=== PATIENT | male | born 1945 | race Hispanic/Latino ===

== ENCOUNTER 2019-09-12 23:40 | Inpatient (IN) | payer MEDICARE, OTHER ==
[~2019-09-12] VITALS: Ht 160 cm; Wt 83.9 kg
[~2019-09-12 23:40] MED LIST: ADVIL; LOSARTAN POTAS100 MG PO; [UNRECOGNIZED DRUG - OTHER] PO; unknown bp med PO
[2019-09-13 01:34] LABS: BASOPHILS % 0.4 % (0.0-1.0); EOSINOPHILS # (AUTO) 0.1 (0.0-0.4); EOSINOPHILS % 0.6 % (0.0-6.0); HEMATOCRIT 52.9 % (38.2-49.6); HEMOGLOBIN 17.9 g/dL (14.0-18.0); LYMPHOCYTES # (AUTO) 1.2 (1.0-3.2); LYMPHOCYTES % 12.2 % (18.0-39.1); MEAN CORPUSCULAR HEMOGLOBIN 30.3 pg (28-32); MEAN CORPUSCULAR HGB CONC 33.8 g/dL (31-35); MEAN CORPUSCULAR VOLUME 89.7 fL (81-99); MONOCYTES # (AUTO) 0.9 (0.2-0.8); MONOCYTES % 8.4 % (4.4-11.3); NEUTROPHILS % 78.2 % (38.7-80.0); PLATELET COUNT 236 x10e3/uL (140-360); RED CELL DISTRIBUTION WIDTH 14.4 % (11.7-14.4)
[2019-09-13 01:56] LABS: ALBUMIN 4.8 g/dL (3.5-5.0); ALBUMIN/GLOBULIN RATIO 0.9 (0.8-2.0); ANION GAP 26.3 mmol/L (8-16); CALCIUM 11.9 mg/dL (8.4-10.2); CREATININE, SERUM 3.57 mg/dL (0.72-1.25); POTASSIUM 3.3 mmol/L (3.5-5.1)
--- NOTE | 2019-09-13 05:45 | Diagnostic Imaging Report ---
EXAM: CT Abdomen and Pelvis WITHOUT contrast INDICATION: Abdominal pain COMPARISON: None. TECHNIQUE: Abdomen and pelvis were scanned utilizing a multidetector helical scanner from the lung base to the pubic symphysis without administration of IV contrast. Absence of intravenous contrast decreases sensitivity for detection of focal lesions and vascular pathology. Coronal and sagittal reformations were obtained. Routine protocol was performed. IV CONTRAST: None ORAL CONTRAST: None COMPLICATIONS: None RADIATION DOSE: Total DLP: 642 mGy*cm Estimated effective dose: (DLP x 0.015 x size factor) mSv CTDIvol has been reviewed. It is below the limits set by the Radiation Protocol Committee (RPC). Dose modulation, iterative reconstruction, and/or weight based adjustment of the mA/kV was utilized to reduce the radiation dose to as low as reasonably achievable. FINDINGS: LINES and TUBES: None. LOWER THORAX: Left lower lobe calcified granuloma. No pleural effusion. HEPATOBILIARY: No focal hepatic lesions. No biliary ductal dilation. GALLBLADDER: No radio-opaque stones or sludge. No wall thickening. SPLEEN: No splenomegaly. PANCREAS: No focal masses or ductal dilatation. ADRENALS: No adrenal nodules KIDNEYS/URETERS: No hydronephrosis. 1.3 cm low-density right renal cortical lesion, likely a cyst. No stones. GI TRACT: Multiple dilated fluid and air-filled loops of small bowel that measure up to 3.7 cm in maximum caliber. Transition point from dilated bowel to decompressed bowel within a midline ventral hernia. The ileum and colon are decompressed. The stomach is distended. No obvious bowel mass. PELVIC ORGANS/BLADDER: The urinary bladder is completely decompressed. The prostate gland is grossly unremarkable. LYMPH NODES: No lymphadenopathy. VESSELS: Scattered atherosclerotic calcifications. PERITONEUM / RETROPERITONEUM: No free air or fluid. BONES: No acute osseous abnormality. SOFT TISSUES: 3.3 x 7.1 cm midline supraumbilical ventral hernia that contains a loop of obstructed small bowel. IMPRESSION: High-grade small bowel obstruction. The point of bowel obstruction is within a 3.3 x 7.1 cm supraumbilical ventral hernia. Surgical consultation is suggested. Signed by: Fabrice Fairbanks MD on 09/13/2019 5:42 AM
--- NOTE | 2019-09-13 06:20 | Emergency Department Note ---
History of Present Illnes History of Present Illness Chief Complaint: Abdominal Complaints History of Present Illness This is a 74 year old male arrives to the ED with epigastric abdominal pain associated nausea and vomiting, for several days. Chief Complaint Comment 74 Y/O MALE PT PRESENTS TO THE ER C/O UMBILICAL ABD PAIN WITH NAUSEA/VOMITTING ONSET YESTERDAY; PT WAS SE[facility] AT [facility] AND TOLD TO COME TO THE ER FOR CT SCAN ABD/LEPVIS AND FURTHER WORKUP; DENIES FEVER/CHILLS; NAD NOTED AT THIS TIME; V/S/S STABLE; 20G IV CATH PLACED IN LT AC; BLOOD OBTAINED FOR ANALYSIS. Historian: Patient Arrival Mode: Car Core Analyst Required: No Onset (how long ago): day(s) Radiation: Reports non-radiation Onset quality: gradual Duration (how long): day(s) Timing of current episode: constant Progression: worsening Exacerbating factors: eating Associated symptoms: Reports loss of appetite, Reports nausea/vomiting Past Medical/Family History Physician Review I have reviewed the patient's past medical and family history. Any updates have been documented here. Past Medical History Recent Fever: No Clinical Suspicion of Infectio: No New/Unexplained Change in Ment: No Past Medical History: Hypertension Other Surgery: BILATERAL KNEE SX Review of Systems Review of Systems Constitutional: Reports no symptoms EENTM: Reports no symptoms Cardiovascular: Reports no symptoms Respiratory: Reports no symptoms Gastrointestinal: Reports as per HPI, Reports abdominal pain, Reports nausea, R eports vomiting Genitourinary: Reports no symptoms Musculoskeletal: Reports no symptoms Integumentary: Reports no symptoms Neurological: Reports no symptoms Psychological: Reports no symptoms Endocrine: Reports no symptoms Hematological/Lymphatic: Reports no symptoms Physical Exam Related Data Allergies: Coded Allergies: No Known Allergies (Unverified , 11/05/12) Triage Vital Signs Vital Signs Date Time Temp Pulse Resp B/P (MAP) Pulse Ox O2 Delivery O2 Flow Rate FiO2 09/13/19 01:17 98.0 101 20 101/76 96 Vital signs reviewed: Yes Physical Exam CONSTITUTIONAL Constitutional: Present well-developed, Present well-nourished HENT HENT: Present normocephalic, Present atraumatic, Present oropharynx clear/moist, Present nose normal HENT L/R: Present left ext ear normal, Present right ext ear normal EYES Eyes: Reports PERRL, Reports conjunctivae normal NECK Neck: Present ROM normal PULMONARY Pulmonary: Present effort normal, Present breath sounds normal CARDIOVASCULAR Cardiovascular: Present regular rhythm, Present heart sounds normal, Present capillary refill normal, Present normal rate GASTROINTESTINAL Abdominal: Present soft, Present distension, Present tender; Absent bowel sounds normal GENITOURINARY Genitourinary: Present exam deferred SKIN Skin: Present warm, Present dry MUSCULOSKELETAL Musculoskeletal: Present ROM normal NEUROLOGICAL Neurological: Present alert, Present oriented x 3, Present no gross motor or sensory deficits PSYCHOLOGICAL Psychological: Present mood/affect normal, Present judgement normal Results Laboratory Result Diagram: 09/13/19 0123 09/13/19 0123 Laboratory Laboratory Tests Test 09/13/19 01:23 White Blood Count 10.19 x10e3/uL (4.8-10.8) Red Blood Count 5.90 x10e6/uL (4.3-5.7) Hemoglobin 17.9 g/dL (14.0-18.0) Hematocrit 52.9 % (38.2-49.6) Mean Corpuscular Volume 89.7 fL (81-99) Mean Corpuscular Hemoglobin 30.3 pg (28-32) Mean Corpuscular Hemoglobin Concent 33.8 g/dL (31-35) Red Cell Distribution Width 14.4 % (11.7-14.4) Platelet Count 236 x10e3/uL (140-360) Neutrophils (%) (Auto) 78.2 % (38.7-80.0) Lymphocytes (%) (Auto) 12.2 % (18.0-39.1) Monocytes (%) (Auto) 8.4 % (4.4-11.3) Eosinophils (%) (Auto) 0.6 % (0.0-6.0) Basophils (%) (Auto) 0.4 % (0.0-1.0) Neutrophils # (Auto) 8.0 (2.1-6.9) Lymphocytes # (Auto) 1.2 (1.0-3.2) Monocytes # (Auto) 0.9 (0.2-0.8) Eosinophils # (Auto) 0.1 (0.0-0.4) Basophils # (Auto) 0.0 (0.0-0.1) Absolute Immature Granulocyte (auto 0.02 x10e3/uL (0-0.1) Sodium Level 138 mmol/L (136-145) Potassium Level 3.3 mmol/L (3.5-5.1) Chloride Level 83 mmol/L (98-107) Carbon Dioxide Level 32 mmol/L (22-29) Anion Gap 26.3 mmol/L (8-16) Blood Urea Nitrogen 47 mg/dL (7-26) Creatinine 3.57 mg/dL (0.72-1.25) Estimat Glomerular Filtration Rate 17 ML/MIN (60-) BUN/Creatinine Ratio 13 (6-25) Glucose Level 158 mg/dL (74-118) Calcium Level 11.9 mg/dL (8.4-10.2) Total Bilirubin 1.2 mg/dL (0.2-1.2) Aspartate Amino Transf (AST/SGOT) 19 IU/L (5-34) Alanine Aminotransferase (ALT/SGPT) 18 IU/L (0-55) Alkaline Phosphatase 55 IU/L (40-150) Total Protein 10.3 g/dL (6.5-8.1) Albumin 4.8 g/dL (3.5-5.0) Globulin 5.5 g/dL (2.3-3.5) Albumin/Globulin Ratio 0.9 (0.8-2.0) Lab results reviewed: Yes Imaging Imaging results reviewed: Yes Imaging Comments IMPRESSION: High-grade small bowel obstruction. The point of bowel obstruction is within a 3.3 x 7.1 cm supraumbilical ventral hernia. Surgical consultation is suggested. Assessment & Plan Medical Decision Making MDM 74 yo M arrived to the ED with epigastric abdominal pain, patient noted to have marked renal dysfunction, no infectious process noted at time of admission. Patient CT findings concerning for a small bowel obstruction, Dr. Rosas consult general surgery accepted consultation. Assessment & Plan Final Impression: (1) Small bowel obstruction (2) Acute renal failure Depart Disposition: ADMITTED Last Vital Signs Date Time Temp Pulse Resp B/P (MAP) Pulse Ox O2 Delivery O2 Flow Rate FiO2 09/13/19 01:17 98.0 101 20 101/76 96 Home Meds Reported Medications [unknown bp med] No Conflict Check, PO DAILY 12/08/12 [Advil] No Conflict Check, PRN 11/19/12 COLT ABBOTT DO Sep 13, 2019 06:20
--- NOTE | 2019-09-13 07:00 | NUR ---
Patient received via stretcher from ER. AAO x 3. Patient had no complaints of pain. Respirations even and non-labored. Telemetry leads placed on patient. Patient instructed to call for assistance when needed. Call light within reach.
[2019-09-13 07:59] VITALS: BP 107/68
--- NOTE | 2019-09-13 09:18 | Consultation ---
DATE OF CONSULTATION: 09/13/2019 CHIEF COMPLAINT: Abdominal pain and vomiting. HISTORY OF PRESENT ILLNESS: The patient is a 74-year-old male with 2-day history of epigastric abdominal pain with repeat vomiting even with water. No hematemesis. No fever, chills, or diarrhea. PAST MEDICAL HISTORY: Positive for hypertension and coronary artery disease. PAST SURGICAL HISTORY: Positive for colon cancer surgery and bilateral knee surgery. ALLERGIES: HE HAS NO DRUG ALLERGIES. SOCIAL HISTORY: Smoking and social drinking. REVIEW OF SYSTEMS: No current chest pain or shortness of breath, cough, or fevers. PHYSICAL EXAMINATION: VITAL SIGNS: Stable. He is afebrile. GENERAL: He is awake, alert, in mild discomfort. HEENT: Sclerae nonicteric. NECK: Supple. LUNGS: Clear. HEART: Regular rate and rhythm. ABDOMEN: Soft. There is a mass palpable in the supraumbilical area with mild tenderness. No rebound. EXTREMITIES: No cyanosis or edema LABORATORY DATA: White cell count 10 and hemoglobin of 17. Creatinine of 3.5. CT of the abdomen show high-grade obstruction in the transition point at the ventral hernia in the supraumbilical region. ASSESSMENT: Incarcerated ventral hernia. PLAN: Repair of incarcerated ventral hernia and anesthesia. Attendant risks discussed. Wayne Rosas MD DNL/MODL /[id number]
[2019-09-13 09:33] VITALS: BP 107/68
[2019-09-13 10:55] VITALS: BP 107/68
[2019-09-13 11:12] VITALS: BP 120/66
[2019-09-13] MEDS: KCL 20MEQ/.9 SOD CHL 1,000 ML IV SCH ×2 (12:27→18:17)
[2019-09-13] MEDS ORDERED: PHENYLEPHRINE HCL 1% 10 MG/ML VIAL ONE (14:01)
[2019-09-13] MEDS ORDERED: SEVOFLURANE INHAL SOLN 250 ML PEN BTL ONE (14:01)
[2019-09-13] MEDS ORDERED: GLYCOPYRROLATE INJ 0.2 MG/ML VIAL ONE (14:01)
[2019-09-13] MEDS ORDERED: ONDANSETRON HCL INJ 2MG/ML 2ML 2 MG/ML VIAL ONE (14:01)
[2019-09-13] MEDS ORDERED: ETOMIDATE 2 MG/ML 10 ML INJ IV ONE (14:01)
[2019-09-13] MEDS ORDERED: ROCURONIUM BROMIDE 10 MG/ML 5ML VIAL IV ONE (14:01)
[2019-09-13] MEDS ORDERED: CEFAZOLIN SOD 1 GM VIAL ONE (14:01)
[2019-09-13] MEDS ORDERED: NEOSTIGMINE 1 MG/ML 10ML VIAL ONE (14:01)
[2019-09-13] MEDS ORDERED: SUCCINYLCHOLINE CHLORIDE 20 MG/ML 10ML VIAL ONE (14:01)
[2019-09-13] MEDS ORDERED: LIDOCAINE HCL 2% LOCAL INJ 5 ML SDV VIAL INJ ONE (14:01)
[2019-09-13] MEDS ORDERED: HEPARIN SOD/SOD CHLORIDE 1,000 ML ONE (14:09)
[2019-09-13] MEDS ORDERED: ACETAMINOPHEN 1000 MG/100 ML 100 ML IV ONE (14:41)
[2019-09-13] MEDS ORDERED: FENTANYL CITRATE/PF 100MCG/2 ML INJ ONE (14:56)
[2019-09-13] MEDS ORDERED: MORPHINE SULFATE 2 MG/ML SYR 1ML IV PRN (15:00)
[2019-09-13] MEDS: SODIUM CHLORIDE 0.9% 250ML IRRIG IR SCH ×2 (15:15→19:15)
--- NOTE | 2019-09-13 16:18 | NUR ---
pt recd to unit abd dressing clean and intact, pt has nasal gastic tube to suction, pt has family member at bedside. pt alert resp even and unlabored at this time. call light in reach.
[2019-09-13] MEDS ORDERED: LACTATED RINGER'S 500 ML IV ONE ×2 (18:15→18:45)
[2019-09-13] MEDS: CEFAZOLIN SOD 1 GM/NS 50ML 50 ML IV SCH (18:22)
--- NOTE | 2019-09-13 19:30 | NUR ---
Patient received asleep in bed. Aroused by tactile stimuli. No signs of pain or respiratory distress. NG tube connected to low continuous wall suction (greenish drainage). HOB elevated. Echevarria catheter draining pale yellow urine. IVF infusing at 125 cc/hr. Safety measures in place. Call light within reach.
--- NOTE | 2019-09-13 19:49 | NUR ---
report given to oncoming nurse, walking rounds complete.
[2019-09-13 20:00] VITALS: BP 99/63
[2019-09-13 21:00] VITALS: BP 99/63
--- NOTE | 2019-09-13 21:56 | Operative Report ---
DATE OF PROCEDURE: 09/13/2019 SURGEON: Wayne Rosas MD PREOPERATIVE DIAGNOSIS: Incarcerated incisional hernia. POSTOPERATIVE DIAGNOSIS: Strangulated incisional hernia. OPERATIVE PROCEDURE: Repair of strangulated incisional hernia with repair of ischemic bowel. ANESTHESIA: General. INDICATION: A 74-year-old male with 2-day history of abdominal pain and vomiting repeatedly. CT scan showed incarcerated incisional hernia with loops of intestine. The patient consented for repair. Attendant risks discussed. PROCEDURE FINDINGS: Partially ischemic bowel wall in the strangulated incisional hernia. DESCRIPTION OF THE PROCEDURE: The patient was brought to OR intubated. Abdomen prepped with alcohol and draped in sterile fashion. A supraumbilical transverse incision was made extending through skin and subcutaneous tissue. The hernia sac was identified and was dissected off surrounding subcutaneous tissue down to the fascial edge. Hernia sac was opened and excess hernia sac was trimmed at the fascial edge using cautery. We had fascia opening proximally 4 cm in diameter. The loops of small bowel which has been incarcerated was examined and there was partially ischemic bowel wall, which was possibly transmural, so muscular stitches of 3-0 Vicryl was placed transversely to buttress this area of partial bowel wall ischemia. Two of these areas were repaired in this fashion with interrupted 3-0 Vicryl Lembert stitches. After this, the bowel was re-examined, was noted to be completely pink and without area of ischemia visible. We then replaced the bowel intra-abdominally and closed the fascial defect in a transverse fashion with 0 Prolene fascial suture interrupted. Operative field was then irrigated. The subcutaneous tissue was then approximated with 3-0 Vicryl and skin was closed with quincy. The patient was extubated and transported to recovery room. ESTIMATED BLOOD LOSS: Approximately 10 mL. Wayne Rosas MD DNL/MODL /[id number]
[2019-09-13] MEDS ORDERED: HYDRALAZINE HCL 20 MG/ML VIAL IV PRN (22:00)
[2019-09-14] VITALS (8 sets, daily range): BP systolic 101–121; BP diastolic 67–74
--- NOTE | 2019-09-14 | NUR ---
New order received from Dr. Rosas of Lactated Ringer 500 cc bolus.
[2019-09-14] MEDS: CEFAZOLIN SOD 1 GM/NS 50ML 50 ML IV SCH ×4 (00:43→23:37)
[2019-09-14] MEDS ORDERED: LACTATED RINGER'S 500 ML IV ONE ×2 (00:46)
[2019-09-14] MEDS ORDERED: LACTATED RINGER'S 1,000 ML INJ ONE (01:15)
[2019-09-14] MEDS: SODIUM CHLORIDE 0.9% 250ML IRRIG IR SCH ×7 (01:49→23:28)
[2019-09-14] MEDS: KCL 20MEQ/.9 SOD CHL 1,000 ML IV SCH ×2 (05:38→09:30)
[2019-09-14 05:58] LABS: BASOPHILS % 0.2 % (0.0-1.0); EOSINOPHILS % 0.4 % (0.0-6.0); HEMATOCRIT 42.4 % (38.2-49.6); HEMOGLOBIN 14.8 g/dL (14.0-18.0); LYMPHOCYTES # (AUTO) 1.2 (1.0-3.2); MEAN CORPUSCULAR HEMOGLOBIN 32.6 pg (28-32); MEAN CORPUSCULAR HGB CONC 34.9 g/dL (31-35); MEAN CORPUSCULAR VOLUME 93.4 fL (81-99); MONOCYTES # (AUTO) 0.9 (0.2-0.8); MONOCYTES % 11.1 % (4.4-11.3); NEUTROPHILS # (AUTO) 6.2 (2.1-6.9); NEUTROPHILS % 74.2 % (38.7-80.0); PLATELET COUNT 142 x10e3/uL (140-360); RED BLOOD COUNT 4.54 x10e6/uL (4.3-5.7); RED CELL DISTRIBUTION WIDTH 16.6 % (11.7-14.4)
[2019-09-14 06:05] LABS: ALBUMIN 3.4 g/dL (3.5-5.0); ALBUMIN/GLOBULIN RATIO 0.9 (0.8-2.0); ANION GAP 16.2 mmol/L (8-16); CALCIUM 9.1 mg/dL (8.4-10.2); CREATININE, SERUM 3.04 mg/dL (0.72-1.25); POTASSIUM 3.2 mmol/L (3.5-5.1)
--- NOTE | 2019-09-14 07:00 | NUR ---
Walking rounds done. Patient resting comfortably. BSSR given to oncoming nurse regarding patient's status.
[2019-09-14 07:03] LABS: THYROID STIMULATING HORMONE 0.667 uIU/mL (0.350-4.940)
--- NOTE | 2019-09-14 08:35 | NUR ---
Per Dr. Rosas, patient is okay to have ice chips.
[2019-09-14] MEDS ORDERED: FAMOTIDINE 20 MG/2 ML VIAL IV SCH (09:00)
[2019-09-14] MEDS ORDERED: METOPROLOL TARTRATE INJ 1 MG/ML VIAL IV PRN (09:00)
[2019-09-14] MEDS ORDERED: ACETAMINOPHEN 325 MG TAB PO PRN (09:00)
[2019-09-14] MEDS: PANTOPRAZOLE 40 MG 10ML VIAL IV SCH ×2 (09:00→17:19)
[2019-09-14] MEDS: MORPHINE SULFATE INJ 4 MG/ML INJ 1ML IV PRN (09:04)
[2019-09-14] MEDS: ONDANSETRON HCL INJ 2MG/ML 2ML 2 MG/ML VIAL IV PRN (09:04)
[2019-09-14] MEDS ORDERED: ATENOLOL50 MG PO (10:56)
[2019-09-14] MEDS ORDERED: POTASSIUM CHLO10 ME1 PO (10:56)
[2019-09-14] MEDS ORDERED: COZAAR25 MG PO (10:56)
[2019-09-14] MEDS ORDERED: XARELTO20 MG PO (10:56)
[2019-09-14] MEDS ORDERED: VITAMIN E400 UNIT PO (10:56)
[2019-09-14] MEDS ORDERED: OMEGA 3 FISH O1 EACH PO (10:56)
[2019-09-14 15:45] LABS: CLARITY,URINE SL CLOUDY (CLEAR); COLOR,URINE YELLOW (YELLOW)
[2019-09-14 15:46] LABS: BILIRUBIN,URINE NEGATIVE (NEGATIVE); KETONES,URINE NEGATIVE (NEGATIVE); LEUKOCYTE ESTERASE ,URINE NEGATIVE (NEGATIVE); NITRITE,URINE NEGATIVE (NEGATIVE); PROTEIN,URINE DIPSTICK NEGATIVE (NEGATIVE); URINE UROBILINOGEN 0.2 mg/dL (0.2 - 1)
[2019-09-14 15:59] LABS: BACTERIA,URINE FEW /HPF; EPITHELIAL CELLS,URINE FEW /LPF; RBC,URINE 0-5 /HPF (0-5)
--- NOTE | 2019-09-14 16:55 | Diagnostic Imaging Report ---
EXAM: Renal Ultrasound INDICATION: ^acute renal failure ^[id number] ^[id number] COMPARISON: CT abdomen and pelvis of 09/13/2019 TECHNIQUE: Transverse and longitudinal images of the kidneys and bladder were obtained. FINDINGS: Right Kidney: Length: 9.6 cm Appearance: Normal echogenicity. Collecting system: No hydronephrosis Stones: None Cyst/Mass: None Left Kidney: Length: 9.8 cm Appearance: Normal echogenicity. Collecting system: No hydronephrosis Stones: None Cyst/Mass: None Bladder: Echevarria catheter in the decompressed bladder. IMPRESSION: No renal calculi or hydronephrosis. The right renal cortical structure seen on recent CT is not well appreciated by ultrasound. Signed by: García Lobato MD on 09/14/2019 4:52 PM
[2019-09-14] MEDS: SODIUM CHLORIDE 0.9% 1000ML 1,000 ML IV SCH (17:20)
[2019-09-14] MEDS: ATORVASTATIN 40 MG TAB PO SCH (21:31)
[2019-09-14] MEDS: ATENOLOL 50 MG TAB PO SCH (21:31)
[2019-09-15] VITALS (8 sets, daily range): BP systolic 110–132; BP diastolic 61–82
--- NOTE | 2019-09-15 02:01 | Consultation ---
DATE OF CONSULTATION: Initial Nephrology Consultation Report REASON FOR CONSULTATION: Elevated serum creatinine. Renal insufficiency. HISTORY OF PRESENT ILLNESS: Mr. Lopez is a 74-year-old male, who presents to the hospital with some abdominal pain and some vomiting. He was found to have an incarcerated ventral hernia. He underwent surgery for that yesterday. I am being asked to see him because of his renal insufficiency. Yesterday, his serum creatinine was 3.57 and today it is 3.04. The only value I have before this is from 2012 and at that time was 1.3. We do not have any values before that. The patient is a poor historian and does not know if he had any issues and it was told if he had resection of the kidneys. PAST MEDICAL HISTORY: 1. Coronary artery disease. 2. Hypertension. PAST SURGICAL HISTORY: Unknown. MEDICATIONS: At home, the patient was taking losartan, is one of his medications. REVIEW OF SYSTEMS: As per HPI. PHYSICAL EXAMINATION: VITAL SIGNS: Blood pressure is 101/70, pulse 106, afebrile. GENERAL: The patient is sleepy, but no acute distress. He has an NG tube in place. He is obese. HEENT: No increased JVD. CARDIOVASCULAR: Regular rate and rhythm. LUNGS: Decreased breath sounds. ABDOMEN: Decreased bowel sounds. EXTREMITIES: No edema. LABORATORY RESULTS: BUN and creatinine 61 and 3.04 respectively. Sodium 142, potassium 3.2, chloride 97, bicarbonate 32. IMPRESSION/PLAN: Adrenal failure. It is hard to know at this time how much is acute and how much is chronic. Back in 2012, the serum creatinine was 1.3. The renal function has improved with some IV fluids, creatinine went up from 3.5 to 3.0. I will check a renal ultrasound to see the current echogenicity of the kidneys to see if he has had underlying chronic kidney disease also. His potassium will be replaced. I will check a urinalysis on him too. NSAIDs, KIRKPATRICK-2 inhibitors, and IV contrast should be avoided. If he has proteinuria on the urinalysis, we will do a 24-hour urine collection. I will follow the patient with you. Thank you for the consultation. Ather MD YULY Pradhan/NAT /[id number]
[2019-09-15] MEDS: SODIUM CHLORIDE 0.9% 1000ML 1,000 ML IV SCH ×2 (02:45→12:15)
[2019-09-15] MEDS: SODIUM CHLORIDE 0.9% 250ML IRRIG IR SCH ×6 (02:45→23:15)
[2019-09-15 05:40] LABS: BASOPHILS % 0.3 % (0.0-1.0); EOSINOPHILS % 0.2 % (0.0-6.0); HEMATOCRIT 42.4 % (38.2-49.6); HEMOGLOBIN 13.7 g/dL (14.0-18.0); LYMPHOCYTES # (AUTO) 1.2 (1.0-3.2); LYMPHOCYTES % 10.7 % (18.0-39.1); MEAN CORPUSCULAR HEMOGLOBIN 29.5 pg (28-32); MEAN CORPUSCULAR HGB CONC 32.3 g/dL (31-35); MEAN CORPUSCULAR VOLUME 91.4 fL (81-99); MONOCYTES # (AUTO) 0.9 (0.2-0.8); MONOCYTES % 8.6 % (4.4-11.3); NEUTROPHILS # (AUTO) 8.7 (2.1-6.9); NEUTROPHILS % 79.8 % (38.7-80.0); PLATELET COUNT 165 x10e3/uL (140-360); RED BLOOD COUNT 4.64 x10e6/uL (4.3-5.7); RED CELL DISTRIBUTION WIDTH 14.7 % (11.7-14.4)
[2019-09-15 06:13] LABS: ALBUMIN 2.9 g/dL (3.5-5.0); ALBUMIN/GLOBULIN RATIO 0.7 (0.8-2.0); CALCIUM 8.6 mg/dL (8.4-10.2); CREATININE, SERUM 1.41 mg/dL (0.72-1.25)
[2019-09-15] MEDS: CEFAZOLIN SOD 1 GM/NS 50ML 50 ML IV SCH ×2 (08:57→16:35)
[2019-09-15] MEDS ORDERED: POTASSIUM CHLORIDE 10MEQ EA PO SCH (09:00)
[2019-09-15] MEDS: ATENOLOL 50 MG TAB PO SCH (09:11)
[2019-09-15] MEDS: POTASSIUM CHLORIDE 20MEQ/15ML UDC NG SCH (09:11)
[2019-09-15] MEDS: OMEGA 3 POLYUNSAT FATTY ACIDS 1000 MG SOFTGEL PO SCH (09:11)
[2019-09-15] MEDS: PANTOPRAZOLE 40 MG 10ML VIAL IV SCH ×2 (09:11→16:35)
[2019-09-15] MEDS: RIVAROXABAN 20 MG TABLET PO SCH (09:11)
[2019-09-15] MEDS ORDERED: POTASSIUM CHLORIDE 20MEQ/15ML UDC NG ONE (11:45)
[2019-09-15] MEDS: ATORVASTATIN 40 MG TAB PO SCH (21:31)
[2019-09-16] VITALS (8 sets, daily range): BP systolic 135–156; BP diastolic 81–96
[2019-09-16] MEDS: CEFAZOLIN SOD 1 GM/NS 50ML 50 ML IV SCH ×3 (01:20→21:22)
[2019-09-16] MEDS: SODIUM CHLORIDE 0.9% 1000ML 1,000 ML IV SCH ×3 (01:20→21:23)
[2019-09-16] MEDS: SODIUM CHLORIDE 0.9% 250ML IRRIG IR SCH ×3 (03:15→12:47)
[2019-09-16 05:39] LABS: BASOPHILS % 0.2 % (0.0-1.0); EOSINOPHILS # (AUTO) 0.1 (0.0-0.4); EOSINOPHILS % 0.9 % (0.0-6.0); HEMATOCRIT 43.5 % (38.2-49.6); HEMOGLOBIN 14.4 g/dL (14.0-18.0); LYMPHOCYTES # (AUTO) 1.1 (1.0-3.2); LYMPHOCYTES % 8.7 % (18.0-39.1); MEAN CORPUSCULAR HGB CONC 33.1 g/dL (31-35); MEAN CORPUSCULAR VOLUME 93.8 fL (81-99); MONOCYTES # (AUTO) 0.9 (0.2-0.8); MONOCYTES % 7.5 % (4.4-11.3); NEUTROPHILS # (AUTO) 10.1 (2.1-6.9); NEUTROPHILS % 82.3 % (38.7-80.0); PLATELET COUNT 174 x10e3/uL (140-360); RED BLOOD COUNT 4.64 x10e6/uL (4.3-5.7); RED CELL DISTRIBUTION WIDTH 14.4 % (11.7-14.4)
[2019-09-16 06:21] LABS: ALANINE AMINOTRANSFERASE < 6 IU/L (0-55); ALBUMIN 2.8 g/dL (3.5-5.0); ALBUMIN/GLOBULIN RATIO 0.6 (0.8-2.0); ALKALINE PHOSPHATASE 53 IU/L (40-150); BLOOD UREA NITROGEN 22 mg/dL (7-26); BUN/CREATININE RATIO 18 (6-25); CALCIUM 8.7 mg/dL (8.4-10.2); CARBON DIOXIDE 28 mmol/L (22-29); CHLORIDE 107 mmol/L (98-107); EST GLOMERULAR FILTRATION RATE 59 ML/MIN (60-); GLUCOSE 101 mg/dL (74-118); SODIUM 146 mmol/L (136-145)
[2019-09-16] MEDS ORDERED: POTASSIUM CHLORIDE 20 MEQ TAB CR PO SCH (09:15)
[2019-09-16] MEDS ORDERED: POTASSIUM CHLORIDE 20MEQ/100ML 200 ML IV ONE (09:45)
[2019-09-16] MEDS: RIVAROXABAN 20 MG TABLET PO SCH (09:57)
[2019-09-16] MEDS: POTASSIUM CHLORIDE 20MEQ/15ML UDC NG SCH (09:57)
[2019-09-16] MEDS: PANTOPRAZOLE 40 MG 10ML VIAL IV SCH ×2 (09:57→17:25)
[2019-09-16] MEDS: OMEGA 3 POLYUNSAT FATTY ACIDS 1000 MG SOFTGEL PO SCH (09:57)
[2019-09-16] MEDS: ATENOLOL 50 MG TAB PO SCH (09:58)
--- NOTE | 2019-09-16 11:27 | Diagnostic Imaging Report ---
EXAM: Abdomen 1 Views INDICATION: ^sbo ^[id number] ^[id number] COMPARISON: Renal ultrasound 09/14/[address] abdomen and pelvis 09/13/2019 FINDINGS: Lines/tubes: Partially visualized distal NG/OG tube with proximal sidehole near the gastroesophageal junction. Mild of stool in the colon. Status post surgical repair of a bowel obstruction. Surgical quincy overlying the midline abdomen. Interval decompression of the loops of bowel. No renal calculi. No abnormal soft tissue masses. Moderate degenerative changes in the lumbar spine and pelvis. IMPRESSION: 1. Interval surgical decompression of the bowel obstruction with improved caliber of the loops of bowel. 2. NG/OG tube appears to overlying the gastric fundus with proximal sidehole near the gastroesophageal junction. Signed by: Dr. Renee Tamayo M.D. on 09/16/2019 11:24 AM
--- NOTE | 2019-09-16 17:40 | NUR ---
NGT removed. Echevarria removed. o2 weaned off. patient DTV
[2019-09-16] MEDS: ATORVASTATIN 40 MG TAB PO SCH (20:38)
[2019-09-17] VITALS (8 sets, daily range): BP systolic 103–159; BP diastolic 66–84
[2019-09-17] MEDS: CEFAZOLIN SOD 1 GM/NS 50ML 50 ML IV SCH ×4 (02:53→23:56)
[2019-09-17 06:15] LABS: BASOPHILS % 0.2 % (0.0-1.0); EOSINOPHILS # (AUTO) 0.3 (0.0-0.4); HEMATOCRIT 41.9 % (38.2-49.6); HEMOGLOBIN 13.6 g/dL (14.0-18.0); LYMPHOCYTES % 9.7 % (18.0-39.1); MEAN CORPUSCULAR HEMOGLOBIN 29.8 pg (28-32); MEAN CORPUSCULAR HGB CONC 32.5 g/dL (31-35); MEAN CORPUSCULAR VOLUME 91.7 fL (81-99); MONOCYTES # (AUTO) 0.8 (0.2-0.8); MONOCYTES % 7.2 % (4.4-11.3); NEUTROPHILS # (AUTO) 8.3 (2.1-6.9); NEUTROPHILS % 79.1 % (38.7-80.0); PLATELET COUNT 177 x10e3/uL (140-360); RED BLOOD COUNT 4.57 x10e6/uL (4.3-5.7); RED CELL DISTRIBUTION WIDTH 14.4 % (11.7-14.4)
[2019-09-17 06:37] LABS: ALANINE AMINOTRANSFERASE 7 IU/L (0-55); ALBUMIN 2.6 g/dL (3.5-5.0); ALBUMIN/GLOBULIN RATIO 0.6 (0.8-2.0); ALKALINE PHOSPHATASE 57 IU/L (40-150); ANION GAP 12.1 mmol/L (8-16); BLOOD UREA NITROGEN 17 mg/dL (7-26); BUN/CREATININE RATIO 17 (6-25); CARBON DIOXIDE 26 mmol/L (22-29); CHLORIDE 109 mmol/L (98-107); CREATININE, SERUM 1.02 mg/dL (0.72-1.25); EST GLOMERULAR FILTRATION RATE > 60 ML/MIN (60-); GLUCOSE 100 mg/dL (74-118); POTASSIUM 3.1 mmol/L (3.5-5.1); SODIUM 144 mmol/L (136-145)
--- NOTE | 2019-09-17 07:30 | NUR ---
pt resting in bed. pt danish speaking, understands some venezuelan. reviewed plan for the day with the pt with the night nurse as interpretor
[2019-09-17] MEDS: PANTOPRAZOLE 40 MG 10ML VIAL IV SCH ×2 (08:14→16:39)
[2019-09-17] MEDS: ATENOLOL 50 MG TAB PO SCH (08:15)
[2019-09-17] MEDS: ONDANSETRON HCL INJ 2MG/ML 2ML 2 MG/ML VIAL IV PRN ×3 (08:15→17:54)
[2019-09-17] MEDS: RIVAROXABAN 20 MG TABLET PO SCH (08:15)
[2019-09-17] MEDS: MORPHINE SULFATE INJ 4 MG/ML INJ 1ML IV PRN ×3 (08:15→17:54)
[2019-09-17] MEDS: POTASSIUM CHLORIDE 20MEQ/15ML UDC NG SCH (08:44)
[2019-09-17] MEDS ORDERED: Atorvastatin PO (08:52)
[2019-09-17] MEDS ORDERED: TYLENOL WITH C1 EACH PO (08:52)
[2019-09-17] MEDS ORDERED: POTASSIUM CHLORIDE 20 MEQ TAB CR PO ONE (09:30)
[2019-09-17] MEDS: OMEGA 3 POLYUNSAT FATTY ACIDS 1000 MG SOFTGEL PO SCH (09:47)
[2019-09-17] MEDS: SODIUM CHLORIDE 0.9% 1000ML 1,000 ML IV SCH ×3 (10:35→23:56)
--- NOTE | 2019-09-17 19:00 | NUR ---
RECEIVED PATIENT IN BEDSIDE SHIFT REPORT. PATIENT RESTING IN BED AT THIS TIME. NO PAIN REPORTED. NO S&S OF DISTRESS NOTED. BED LOCKED IN LOWEST POSITION, SIDE RAILS UPX2, CALL LIGHT IN REACH.
[2019-09-17] MEDS: ATORVASTATIN 40 MG TAB PO SCH (20:24)
[2019-09-18] VITALS: BP 127/83
[2019-09-18 04:00] VITALS: BP 140/88
[2019-09-18 05:38] LABS: BASOPHILS % 0.2 % (0.0-1.0); EOSINOPHILS # (AUTO) 0.4 (0.0-0.4); EOSINOPHILS % 2.5 % (0.0-6.0); HEMATOCRIT 40.5 % (38.2-49.6); HEMOGLOBIN 13.2 g/dL (14.0-18.0); LYMPHOCYTES % 7.3 % (18.0-39.1); MEAN CORPUSCULAR HEMOGLOBIN 30.3 pg (28-32); MEAN CORPUSCULAR HGB CONC 32.6 g/dL (31-35); MEAN CORPUSCULAR VOLUME 93.1 fL (81-99); MONOCYTES # (AUTO) 0.9 (0.2-0.8); MONOCYTES % 6.1 % (4.4-11.3); NEUTROPHILS # (AUTO) 11.7 (2.1-6.9); NEUTROPHILS % 83.2 % (38.7-80.0); PLATELET COUNT 171 x10e3/uL (140-360); RED BLOOD COUNT 4.35 x10e6/uL (4.3-5.7); RED CELL DISTRIBUTION WIDTH 14.5 % (11.7-14.4)
[2019-09-18 06:10] LABS: ALANINE AMINOTRANSFERASE 8 IU/L (0-55); ALBUMIN 2.5 g/dL (3.5-5.0); ALBUMIN/GLOBULIN RATIO 0.6 (0.8-2.0); ALKALINE PHOSPHATASE 59 IU/L (40-150); ANION GAP 10.2 mmol/L (8-16); BLOOD UREA NITROGEN 15 mg/dL (7-26); BUN/CREATININE RATIO 17 (6-25); CALCIUM 7.6 mg/dL (8.4-10.2); CARBON DIOXIDE 26 mmol/L (22-29); CHLORIDE 108 mmol/L (98-107); CREATININE, SERUM 0.88 mg/dL (0.72-1.25); EST GLOMERULAR FILTRATION RATE > 60 ML/MIN (60-); GLUCOSE 92 mg/dL (74-118); POTASSIUM 4.2 mmol/L (3.5-5.1); SODIUM 140 mmol/L (136-145)
[2019-09-18 08:26] VITALS: BP 139/82
[2019-09-18] MEDS: PANTOPRAZOLE 40 MG 10ML VIAL IV SCH ×2 (08:52→15:05)
[2019-09-18] MEDS: OMEGA 3 POLYUNSAT FATTY ACIDS 1000 MG SOFTGEL PO SCH (08:52)
[2019-09-18] MEDS: RIVAROXABAN 20 MG TABLET PO SCH (08:52)
[2019-09-18] MEDS: POTASSIUM CHLORIDE 20MEQ/15ML UDC NG SCH (08:52)
[2019-09-18] MEDS: CEFAZOLIN SOD 1 GM/NS 50ML 50 ML IV SCH ×2 (08:52→15:05)
[2019-09-18] MEDS: ATENOLOL 50 MG TAB PO SCH (08:52)
[2019-09-18 09:14] VITALS: BP 139/82
--- NOTE | 2019-09-18 09:58 | NUR ---
ORDERS FOR HOME HEALTH FOR SKILLED NURSE EVAL AND TREAT AND HOME PT/OT EVAL AND TREAT SPOKE WITH HANNA AT [facility] WHO STATES THEY ARE IN NETWORK WITH PT'S INSURANCE PH: [phone] ORDER, FACE SHEET AND CLINICALS FAXED; CONFIRMATION REC'D CHOICE LETTER SIGNED BY PT AND CONFIRMED ADDRESS AND PHONE NUMBER CORRECT VIA INTERPRETOR COPY OF CHOICE LETTER TO PT AND ORIGINAL ON CHART GAVE PT MY CARD FOR QUESTIONS/CONCERNS REQUESTED ENGLISH SPEAKING STAFF FOR PT
[2019-09-18 12:10] VITALS: BP 118/66
--- NOTE | 2019-09-18 13:57 | NUR ---
aware of redness around surgical site. Per "cleared to discharge from surgical standpoint. Follow up 1 week"
[2019-09-18] MEDS ORDERED: CIPRO500 MG PO (15:45)
[2019-09-18] MEDS ORDERED: BACTRIM DS TAB1 EACH PO (15:45)
--- NOTE | 2019-09-18 16:30 | NUR ---
Abdominal site cleaned with normal saline. [place] well approximated. No abnormal drainage noted. Dry dressing placed. Educated patient on s/s of infection and dressing changes. Voiced understanding.
[2019-09-18 16:37] VITALS: BP 135/67
--- NOTE | 2019-09-18 17:00 | NUR ---
Per Arlet Joyner RAISIN SEPARATOR OPERATOR abx rx to be faxed to patient's pharmacy. Patient and son (Hernandez) aware.
--- NOTE | 2019-09-18 17:07 | NUR ---
Left FA IV discontinued. No signs of infiltration noted. Secured with 2x2 gauze and coban. Taken via wheelchair to personal car. AAOX4 to time, person, place, situation. Respirations even and unlabored. Dressing to mid abdomen clean, dry, and intact. Discharge instructions, rx, and all personal belongings taken with patient.
--- NOTE | 2019-09-19 03:19 | Discharge Summary ---
ADMISSION DIAGNOSES: 1. Incarcerated strangulated hernia. 2. Acute kidney injury. 3. Chronic atrial fibrillation. 4. Hypertension. 5. Hypokalemia. DISCHARGE DIAGNOSES: 1. Incarcerated strangulated hernia. 2. Acute kidney injury. 3. Chronic atrial fibrillation. 4. Hypertension. 5. Hypokalemia. HISTORY: Atrial fibrillation, hypertension, colon cancer. SURGICAL HISTORY: Colon resection, bilateral knee surgery. FAMILY HISTORY: None. SOCIAL HISTORY: The patient admits to quitting alcohol use about 10 years ago. He was drinking about a six-pack on the weekends. He also quit smoking about 40 years ago. HOSPITAL COURSE: A 74-year-old male presents to the ER with complaints of umbilical abdominal pain with nausea and vomiting that started on 09/11. On admission, CT of the abdomen and pelvis was done, which showed high-grade small bowel obstruction. The point of bowel obstruction is within a supraumbilical ventral hernia. Surgical consultation is suggested. Surgery was consulted and the patient had a repair of a strangulated incisional hernia with repair of ischemic bowel on 09/13/[address] Rosas. On admission, the patient's GFR was 17. After fluids and Nephrology consultation, the GFR returned to normal. Renal ultrasound was done, which showed no calculi or hydronephrosis. The patient's cholesterol levels were elevated, so he was started on Lipitor. The patient is able to tolerate diet after the procedure, having multiple bowel movements a day and pain is controlled. Due to slight erythema around the surgical wound, the patient was given prescriptions for Bactrim and Cipro for 5 days. Surgery is aware of the erythema and okay to discharge home. The patient will discharge home and follow up with primary care and Dr. Rosas in 1 to 2 weeks. The patient understands discharge instructions and agrees to plan. Vital signs stable. The patient afebrile. Dictated by Arlet Joyner NP MD DC Maciel/MODL /[id number]
== END 2019-09-18 17:07 | disposition home or self-care (01) | DRG 330 ==
LOC: ER 09-13 03:27 → ERHOLD 09-13 04:54 → MED/SURG2 09-13 06:55
PROVIDERS: ADMIT Internal Medicine; ATTEND Internal Medicine
PROC: 0DQ80ZZ Repair Small Intestine, Open Approach (ICD-10-PCS; 2019-09-13)
PROC: 0WQF0ZZ Repair Abdominal Wall, Open Approach (ICD-10-PCS; principal; 2019-09-13 13:40)
DX: K42.0 Umbilical hernia with obstruction, without gangrene (principal); K55.8 Other vascular disorders of intestine; N17.9 Acute kidney failure, unspecified; I25.10 Atherosclerotic heart disease of native coronary artery without angina pectoris; I48.91 Unspecified atrial fibrillation; Z79.01 Long term (current) use of anticoagulants; E78.5 Hyperlipidemia, unspecified; E87.6 Hypokalemia; Z11.59 Encounter for screening for other viral diseases; Z85.038 Personal history of other malignant neoplasm of large intestine; Z90.49 Acquired absence of other specified parts of digestive tract
CPT/HCPCS: 36415; 74018; 74176; 76770; 80053; 80061; 81001; 82948; 83036; 83735; 84443; 85025; 87635; 93005; 99284; J0330; J0690; J2001; J2270; J2370; J2405; J2710; J3010; J3480; J7030; J7120; J7121

== ENCOUNTER 2020-10-10 09:30 | Observation (INO) | payer MEDICARE, OTHER ==
[2020-10-08 09:33] LABS: BASOPHILS % 0.5 % (0.0-1.0); EOSINOPHILS # (AUTO) 0.2 (0.0-0.4); EOSINOPHILS % 3.1 % (0.0-6.0); HEMATOCRIT 42.9 % (38.2-49.6); HEMOGLOBIN 14.5 g/dL (14.0-18.0); LYMPHOCYTES # (AUTO) 2.8 (1.0-3.2); MEAN CORPUSCULAR HEMOGLOBIN 30.7 pg (28-32); MEAN CORPUSCULAR HGB CONC 33.8 g/dL (31-35); MEAN CORPUSCULAR VOLUME 90.9 fL (81-99); MONOCYTES # (AUTO) 0.4 (0.2-0.8); MONOCYTES % 6.9 % (4.4-11.3); NEUTROPHILS # (AUTO) 2.6 (2.1-6.9); NEUTROPHILS % 43.3 % (38.7-80.0); PLATELET COUNT 174 x10e3/uL (140-360); RED BLOOD COUNT 4.72 x10e6/uL (4.3-5.7); RED CELL DISTRIBUTION WIDTH 14.3 % (11.7-14.4)
[2020-10-08 09:53] LABS: CALCIUM 9.5 mg/dL (8.4-10.2); CREATININE, SERUM 1.34 mg/dL (0.72-1.25)
[~2020-10-10] VITALS: Ht 160 cm; Wt 90.7 kg
[~2020-10-10 09:30] MED LIST changes: +ATENOLOL50 MG PO; +Atorvastatin PO; +BACTRIM DS TAB1 EACH PO; +CIPRO500 MG PO; +COZAAR25 MG PO; +OMEGA 3 FISH O1 EACH PO; +POTASSIUM CHLO10 ME1 PO; +TYLENOL WITH C1 EACH PO; +VITAMIN E400 UNIT PO; +XARELTO20 MG PO
[2020-10-10] MEDS ORDERED: SODIUM CHLORIDE 0.9% 50ML 100 ML ONE (10:44)
[2020-10-10] MEDS ORDERED: ROCURONIUM BROMIDE 10 MG/ML 5ML VIAL IV ONE (12:04)
[2020-10-10] MEDS ORDERED: PROPOFOL IV EMULSION 10 MG/ML 20 ML VIAL ONE (12:04)
[2020-10-10] MEDS ORDERED: LIDOCAINE HCL 2% LOCAL INJ 5 ML SDV VIAL INJ ONE (12:04)
[2020-10-10] MEDS ORDERED: DEXAMETHASONE SOD PHOS INJ 4 MG/ML VIAL ONE (12:04)
[2020-10-10] MEDS ORDERED: POVIDONE IODINE 0.05% 0.05 % ML PO ONE (12:04)
[2020-10-10] MEDS ORDERED: GLYCOPYRROLATE INJ 0.2 MG/ML VIAL ONE (12:04)
[2020-10-10] MEDS ORDERED: ONDANSETRON HCL INJ 2MG/ML 2ML 2 MG/ML VIAL ONE (12:04)
[2020-10-10] MEDS ORDERED: NEOSTIGMINE 1 MG/ML 10ML VIAL ONE (12:04)
[2020-10-10] MEDS ORDERED: SEVOFLURANE INHAL SOLN 250 ML PEN BTL ONE (12:04)
[2020-10-10] MEDS ORDERED: MIDAZOLAM HCL 2 MG/2 ML VIAL ONE (12:08)
[2020-10-10] MEDS ORDERED: FENTANYL CITRATE/PF 100MCG/2 ML INJ ONE (12:08)
[2020-10-10] MEDS ORDERED: MORPHINE SULFATE INJ 10 MG/ML ONE (12:08)
[2020-10-10] MEDS ORDERED: BUPIVACAINE HCL 0.5% INJ 30 ML VIAL INJ ONE ×2 (12:30→12:41)
[2020-10-10] MEDS ORDERED: LIDOCAINE 1% W/EPINEPHRINE 20 ML VIAL ONE (12:41)
[2020-10-10] MEDS ORDERED: ACETAMINOPHEN 1000 MG/100 ML 100 ML IV ONE (13:09)
[2020-10-10 16:18] VITALS: BP 132/78
[2020-10-10 16:23] VITALS: BP 132/78
[2020-10-10] MEDS ORDERED: ONDANSETRON HCL INJ 2MG/ML 2ML 2 MG/ML VIAL IV PRN (19:30)
[2020-10-10] MEDS ORDERED: HYDROCODONE/APAP 5MG-325MG TAB PO PRN (19:30)
[2020-10-10] MEDS ORDERED: MORPHINE SULFATE INJ 4 MG/ML INJ 1ML IV PRN (19:30)
[2020-10-10] MEDS ORDERED: ENALAPRILAT IV INJ 1.25 MG/ML VIAL IV PRN (19:30)
[2020-10-10 20:00] VITALS: BP 123/79
[2020-10-10 21:34] VITALS: BP 123/79
[2020-10-10] MEDS: Cefazolin 1 GM in SODIUM CHLORIDE 0.9% 50ML 50 ML IV SCH (21:34)
[2020-10-10] MEDS: LACTATED RINGER'S 1,000 ML INJ SCH (21:34)
[2020-10-10] MEDS ORDERED: CEFAZOLIN SOD 1 GM/NS 50ML 50 ML IV SCH (22:00)
[2020-10-11] VITALS: BP 161/84
[2020-10-11 04:00] VITALS: BP 155/99
[2020-10-11] MEDS: LACTATED RINGER'S 1,000 ML INJ SCH (05:30)
[2020-10-11] MEDS: Cefazolin 1 GM in SODIUM CHLORIDE 0.9% 50ML 50 ML IV SCH (06:16)
[2020-10-11 07:00] VITALS: BP 145/80
== END 2020-10-11 09:05 | disposition home or self-care (01) ==
LOC: OR 09:30 → PACU V 14:33 → MED/SURG 16:00
PROVIDERS: ADMIT Surgery; ATTEND Surgery
DX: K43.0 Incisional hernia with obstruction, without gangrene (principal); Z87.891 Personal history of nicotine dependence; Z01.818 Encounter for other preprocedural examination
CPT/HCPCS: 36415; 49655; 71046; 80048; 85025; 93005; C1781; G0378 ×2; J0131; J0690 ×2; J1100; J2001; J2250; J2270; J2405; J2704; J2710; J3010; J7121

== ENCOUNTER 2023-12-21 02:01 | Inpatient (IN) | payer MEDICARE ==
[2023-12-21] VITALS (12 sets, daily range): BP systolic 106–139; BP diastolic 57–84; PULSE 53–81; RESP 16–20; TEMP 97.8–98.4; O2SAT 97–100
[~2023-12-21] VITALS: Ht 157.5 cm; Wt 82.2 kg
[2023-12-21] MEDS: SODIUM CHLORIDE 0.9% 1000ML 1,000 ML IV STA (02:28)
[2023-12-21] MEDS: ONDANSETRON HCL INJ 2MG/ML 2ML 2 MG/ML VIAL IV STA ×2 (02:28→04:13)
[2023-12-21 02:35] LABS: BASOPHILS % 0.2 % (0.0-1.0); EOSINOPHILS % 0.2 % (0.0-6.0); HEMATOCRIT 46.5 % (38.2-49.6); LYMPHOCYTES # (AUTO) 1.6 (1.0-3.2); LYMPHOCYTES % 10.3 % (18.0-39.1); MEAN CORPUSCULAR HEMOGLOBIN 31.9 pg (28-32); MEAN CORPUSCULAR HGB CONC 34.4 g/dL (31-35); MEAN CORPUSCULAR VOLUME 92.8 fL (81-99); MONOCYTES # (AUTO) 0.5 (0.2-0.8); MONOCYTES % 3.3 % (4.4-11.3); NEUTROPHILS # (AUTO) 13.3 (2.1-6.9); NEUTROPHILS % 85.6 % (38.7-80.0); PLATELET COUNT 152 x10e3/uL (140-360); RED BLOOD COUNT 5.01 x10e6/uL (4.3-5.7); RED CELL DISTRIBUTION WIDTH 13.8 % (11.7-14.4); WHITE BLOOD COUNT 15.58 x10e3/uL (4.8-10.8)
[2023-12-21 02:49] LABS: ALBUMIN 4.5 g/dL (3.5-5.0); ALBUMIN/GLOBULIN RATIO 1.3 (0.8-2.0); ANION GAP 17.2 mmol/L (8-16); BILIRUBIN,TOTAL 0.8 mg/dL (0.2-1.2); CALCIUM 10.9 mg/dL (8.4-10.2); CREATININE, SERUM 1.28 mg/dL (0.72-1.25); TOTAL PROTEIN 8.1 g/dL (6.5-8.1)
[2023-12-21 02:50] LABS: POTASSIUM 3.2 mmol/L (3.5-5.1)
[2023-12-21 02:56] LABS: TROPONIN I 0.005 ng/mL (0-0.300)
[2023-12-21] MEDS ORDERED: IOPAMIDOL 370 MG/ML 100 ML INFUS..BTL INJ ONE (03:10)
[2023-12-21] MEDS: Morphine 4mg INJECTION 4 MG/ML INJ IV STA (04:12)
[2023-12-21] MEDS ORDERED: ONDANSETRON HCL INJ 2MG/ML 2ML 2 MG/ML VIAL IV PRN (04:15)
[2023-12-21] MEDS: SODIUM CHLORIDE 0.9% 1000ML 1,000 ML IV SCH (05:17)
[2023-12-21 05:47] LABS: BILIRUBIN,URINE NEGATIVE (NEGATIVE); CLARITY,URINE CLEAR (CLEAR); COLOR,URINE YELLOW (YELLOW); GLUCOSE, URINE NEGATIVE (NEGATIVE); KETONES,URINE 1+ (NEGATIVE); LEUKOCYTE ESTERASE ,URINE NEGATIVE (NEGATIVE); NITRITE,URINE NEGATIVE (NEGATIVE); PH,URINE 7 (5 - 7); PROTEIN,URINE DIPSTICK NEGATIVE (NEGATIVE); URINE UROBILINOGEN 0.2 mg/dL (0.2 - 1)
[2023-12-21 06:01] LABS: BACTERIA,URINE RARE /HPF; RBC,URINE 0-5 /HPF (0-5); WBC,URINE (MAN) 0-5 /HPF (0-5)
[2023-12-21] MEDS ORDERED: PRAVASTATIN SOD40 MG (06:38)
[2023-12-21] MEDS ORDERED: POTASSIUM CHLO20 ME1 PO (06:39)
[2023-12-21] MEDS ORDERED: XARELTO10 MG PO (06:40)
[2023-12-21] MEDS ORDERED: Morphine 4mg INJECTION 4 MG/ML INJ IV PRN (08:00)
[2023-12-21] MEDS ORDERED: HYDRALAZINE HCL 20 MG/ML VIAL IV PRN (09:15)
[2023-12-21] MEDS ORDERED: ACETAMINOPHEN 325 MG TAB PO PRN (09:15)
[2023-12-21] MEDS: LOSARTAN POTASSIUM 25 MG TAB PO SCH (10:04)
[2023-12-21] MEDS: ATENOLOL 50 MG TAB PO SCH (20:49)
[2023-12-21] MEDS: PRAVASTATIN 20 MG TAB PO SCH (20:49)
[2023-12-22] VITALS (8 sets, daily range): BP systolic 126–137; BP diastolic 69–86; PULSE 61–81; RESP 16–18; TEMP 97.6–98.6; O2SAT 96–100
[2023-12-22 06:33] LABS: BASOPHILS % 0.3 % (0.0-1.0); EOSINOPHILS # (AUTO) 0.3 (0.0-0.4); EOSINOPHILS % 4.5 % (0.0-6.0); HEMATOCRIT 39.7 % (38.2-49.6); HEMOGLOBIN 13.5 g/dL (14.0-18.0); LYMPHOCYTES # (AUTO) 1.2 (1.0-3.2); LYMPHOCYTES % 20.7 % (18.0-39.1); MEAN CORPUSCULAR HEMOGLOBIN 32.1 pg (28-32); MEAN CORPUSCULAR VOLUME 94.3 fL (81-99); MONOCYTES # (AUTO) 0.4 (0.2-0.8); MONOCYTES % 6.7 % (4.4-11.3); NEUTROPHILS % 67.5 % (38.7-80.0); PLATELET COUNT 132 x10e3/uL (140-360); RED BLOOD COUNT 4.21 x10e6/uL (4.3-5.7); RED CELL DISTRIBUTION WIDTH 14.4 % (11.7-14.4); WHITE BLOOD COUNT 5.94 x10e3/uL (4.8-10.8)
[2023-12-22] MEDS ORDERED: BUPIVACAINE HCL 0.5% INJ 30 ML VIAL INJ ONE (06:34)
[2023-12-22 07:01] LABS: ALBUMIN 3.4 g/dL (3.5-5.0); ALBUMIN/GLOBULIN RATIO 1.1 (0.8-2.0); ANION GAP 12.2 mmol/L (8-16); BILIRUBIN,TOTAL 0.9 mg/dL (0.2-1.2); CALCIUM 8.5 mg/dL (8.4-10.2); CREATININE, SERUM 1.07 mg/dL (0.72-1.25); POTASSIUM 3.2 mmol/L (3.5-5.1); TOTAL PROTEIN 6.5 g/dL (6.5-8.1)
[2023-12-22 07:29] LABS: MAGNESIUM 1.7 MG/DL (1.3-2.1); PHOSPHORUS 2.7 MG/DL (2.3-4.7)
[2023-12-22] MEDS ORDERED: DIPHENHYDRAMINE HCL INJ 50 MG/ML VIAL IM PRN (07:45)
[2023-12-22] MEDS ORDERED: NALOXONE HCL INJ 0.4 MG/ML AMP IV PRN (07:45)
[2023-12-22 07:51] LABS: THYROID STIMULATING HORMONE 1.006 uIU/mL (0.350-4.940)
[2023-12-22] MEDS ORDERED: MORPHINE SULFATE 1 MG/ML 30ML PCA IV PRN (09:00)
[2023-12-22] MEDS: SODIUM CHLORIDE 0.9% 1000ML 1,000 ML IV SCH (09:15)
[2023-12-22] MEDS ORDERED: ACETAMINOPHEN 1000 MG/100 ML IV PRN (10:00)
[2023-12-22] MEDS ORDERED: FENTANYL CITRATE/PF 100MCG/2 ML INJ ONE (11:07)
[2023-12-22] MEDS ORDERED: ONDANSETRON HCL INJ 2MG/ML 2ML 2 MG/ML VIAL ONE (11:37)
[2023-12-22] MEDS ORDERED: SEVOFLURANE INHAL SOLN 250 ML PEN BTL ONE (11:37)
[2023-12-22] MEDS ORDERED: PROPOFOL IV EMULSION 10 MG/ML 20 ML VIAL ONE (11:37)
[2023-12-22] MEDS ORDERED: DEXAMETHASONE SOD PHOS INJ 4 MG/ML SDV ONE (11:37)
[2023-12-22] MEDS ORDERED: LIDOCAINE HCL 2% LOCAL INJ 5 ML SDV VIAL INJ ONE (11:37)
[2023-12-22] MEDS ORDERED: SUGAMMADEX SODIUM 200 MG/2 ML VIAL IV ONE (11:37)
[2023-12-22] MEDS ORDERED: ROCURONIUM BROMIDE 10 MG/ML 5ML VIAL IV ONE (11:37)
[2023-12-22] MEDS ORDERED: EPHEDRINE SULFATE INJ 50 MG/ML VIAL ONE (11:37)
[2023-12-22] MEDS: KETOROLAC TROMETHAMINE 30 MG/ML VIAL IV PRN (14:46)
[2023-12-23] VITALS (10 sets, daily range): BP systolic 116–141; BP diastolic 59–85; PULSE 54–80; RESP 16–18; TEMP 97.4–98; O2SAT 97–100
[2023-12-23 06:03] LABS: HEMATOCRIT 39.7 % (38.2-49.6); HEMOGLOBIN 13.1 g/dL (14.0-18.0); LYMPHOCYTES # (AUTO) 0.9 (1.0-3.2); LYMPHOCYTES % 12.2 % (18.0-39.1); MEAN CORPUSCULAR HEMOGLOBIN 31.6 pg (28-32); MEAN CORPUSCULAR VOLUME 95.9 fL (81-99); MONOCYTES # (AUTO) 0.3 (0.2-0.8); MONOCYTES % 4.4 % (4.4-11.3); NEUTROPHILS # (AUTO) 6.4 (2.1-6.9); PLATELET COUNT 137 x10e3/uL (140-360); RED BLOOD COUNT 4.14 x10e6/uL (4.3-5.7); RED CELL DISTRIBUTION WIDTH 13.7 % (11.7-14.4)
[2023-12-23] MEDS ORDERED: HYDROCODONE/APAP 5MG-325MG TAB PO PRN (06:15)
[2023-12-23 06:31] LABS: ANION GAP 13.1 mmol/L (8-16); CALCIUM 8.3 mg/dL (8.4-10.2); CREATININE, SERUM 0.92 mg/dL (0.72-1.25)
[2023-12-23 06:32] LABS: MAGNESIUM 1.7 MG/DL (1.3-2.1); PHOSPHORUS 2.8 MG/DL (2.3-4.7); POTASSIUM 3.1 mmol/L (3.5-5.1)
[2023-12-23] MEDS ORDERED: MAGNESIUM SULFATE 2GM/50ML IV ONE (08:00)
[2023-12-23] MEDS: MAGNESIUM SULFATE 2GM/50ML 50 ML IV ONE (08:46)
[2023-12-23] MEDS: SENNA-S TABLET PO SCH (10:55)
[2023-12-23] MEDS: POTASSIUM CHLORIDE 10MEQ EA PO ONE (16:46)
[2023-12-24 00:33] VITALS: BP 125/67; PULSE 49; RESP 17; TEMP 97.6; O2SAT 100
[2023-12-24 04:00] VITALS: BP 164/68; PULSE 48; RESP 18; TEMP 97.7; O2SAT 100
[2023-12-24 06:17] LABS: BASOPHILS % 0.5 % (0.0-1.0); EOSINOPHILS # (AUTO) 0.2 (0.0-0.4); HEMATOCRIT 39.5 % (38.2-49.6); HEMOGLOBIN 13.4 g/dL (14.0-18.0); LYMPHOCYTES # (AUTO) 2.2 (1.0-3.2); LYMPHOCYTES % 29.4 % (18.0-39.1); MEAN CORPUSCULAR HEMOGLOBIN 32.1 pg (28-32); MEAN CORPUSCULAR HGB CONC 33.9 g/dL (31-35); MEAN CORPUSCULAR VOLUME 94.7 fL (81-99); MONOCYTES # (AUTO) 0.5 (0.2-0.8); MONOCYTES % 6.9 % (4.4-11.3); NEUTROPHILS # (AUTO) 4.5 (2.1-6.9); NEUTROPHILS % 60.1 % (38.7-80.0); PLATELET COUNT 142 x10e3/uL (140-360); RED BLOOD COUNT 4.17 x10e6/uL (4.3-5.7); RED CELL DISTRIBUTION WIDTH 14.3 % (11.7-14.4); WHITE BLOOD COUNT 7.44 x10e3/uL (4.8-10.8)
[2023-12-24] MEDS ORDERED: ULTRAM 50MG50 MG PO (06:35)
[2023-12-24 06:38] LABS: ANION GAP 11.5 mmol/L (8-16); CALCIUM 8.3 mg/dL (8.4-10.2); CREATININE, SERUM 0.89 mg/dL (0.72-1.25); POTASSIUM 3.5 mmol/L (3.5-5.1)
[2023-12-24 06:40] LABS: PHOSPHORUS 1.7 MG/DL (2.3-4.7)
[2023-12-24 06:54] VITALS: PULSE 63; RESP 21; O2SAT 100
[2023-12-24 07:41] VITALS: BP 148/72; PULSE 77; RESP 18; TEMP 97.6; O2SAT 100
[2023-12-24] MEDS ORDERED: ATENOLOL50 MG PO (08:54)
[2023-12-24 09:58] VITALS: BP 148/72
== END 2023-12-24 11:30 | disposition home or self-care (01) | DRG 336 ==
LOC: ER 02:11 → ERHOLD 04:16 → MED/SURG3 04:42
PROVIDERS: ADMIT Internal Medicine; ATTEND Internal Medicine
PROC: 0WQF0ZZ Repair Abdominal Wall, Open Approach (ICD-10-PCS; 2023-12-22)
PROC: 0DN80ZZ Release Small Intestine, Open Approach (ICD-10-PCS; principal; 2023-12-22 06:57)
DX: K43.0 Incisional hernia with obstruction, without gangrene (principal); I48.19 Other persistent atrial fibrillation; K56.50 Intestinal adhesions [bands], unspecified as to partial versus complete obstruction; E78.5 Hyperlipidemia, unspecified; I10 Essential (primary) hypertension; Z79.01 Long term (current) use of anticoagulants; Z85.038 Personal history of other malignant neoplasm of large intestine
CPT/HCPCS: 36415; 74177; 80048; 80053; 81001; 82550; 83036; 83690; 83735; 84100; 84443; 84484; 85025; 93005; 93306; 94799; 96361; 99252; 99284; J1100; J1885; J2003; J2270; J2405; J2470; J2543; J3475; J7030; Q9967

== ENCOUNTER 2023-12-28 17:31 | Emergency (ER) | payer MEDICARE ==
[~2023-12-28] VITALS: Ht 157.5 cm; Wt 82.1 kg
[~2023-12-28 17:31] MED LIST changes: +POTASSIUM CHLO20 ME1 PO; +PRAVASTATIN SOD40 MG; +ULTRAM 50MG50 MG PO; +XARELTO10 MG PO
[2023-12-28 17:39] VITALS: TEMP 98.2
[2023-12-28 18:11] LABS: BASOPHILS % 0.5 % (0.0-1.0); EOSINOPHILS # (AUTO) 0.3 (0.0-0.4); EOSINOPHILS % 4.7 % (0.0-6.0); HEMATOCRIT 40.8 % (38.2-49.6); HEMOGLOBIN 13.7 g/dL (14.0-18.0); LYMPHOCYTES # (AUTO) 1.8 (1.0-3.2); LYMPHOCYTES % 29.6 % (18.0-39.1); MEAN CORPUSCULAR HEMOGLOBIN 31.7 pg (28-32); MEAN CORPUSCULAR HGB CONC 33.6 g/dL (31-35); MEAN CORPUSCULAR VOLUME 94.4 fL (81-99); MONOCYTES # (AUTO) 0.5 (0.2-0.8); MONOCYTES % 8.1 % (4.4-11.3); NEUTROPHILS # (AUTO) 3.4 (2.1-6.9); NEUTROPHILS % 56.8 % (38.7-80.0); PLATELET COUNT 157 x10e3/uL (140-360); RED BLOOD COUNT 4.32 x10e6/uL (4.3-5.7); RED CELL DISTRIBUTION WIDTH 14.1 % (11.7-14.4); WHITE BLOOD COUNT 6.02 x10e3/uL (4.8-10.8)
[2023-12-28] MEDS ORDERED: SODIUM CHLORIDE 0.9% 100 ML ONE (18:11)
[2023-12-28] MEDS ORDERED: IOPAMIDOL 370 MG/ML 100 ML INFUS..BTL INJ ONE (18:11)
[2023-12-28 18:26] LABS: ALBUMIN 3.8 g/dL (3.5-5.0); ANION GAP 14.4 mmol/L (8-16); BILIRUBIN,TOTAL 0.6 mg/dL (0.2-1.2); CALCIUM 8.9 mg/dL (8.4-10.2); CREATININE, SERUM 1.06 mg/dL (0.72-1.25); TOTAL PROTEIN 7.7 g/dL (6.5-8.1)
[2023-12-28 18:27] LABS: POTASSIUM 3.4 mmol/L (3.5-5.1)
[2023-12-28 18:36] LABS: TROPONIN I 0.002 ng/mL (0-0.300)
[2023-12-28 19:19] VITALS: PULSE 67; RESP 16
[2023-12-28 19:42] VITALS: BP 140/76; PULSE 77; RESP 16; TEMP 98.2; O2SAT 97
== END 2023-12-28 19:31 | disposition home or self-care (01) ==
LOC: ER 17:55
DX: R42 Dizziness and giddiness (principal); I60.11 Nontraumatic subarachnoid hemorrhage from right middle cerebral artery; R47.01 Aphasia; R74.8 Abnormal levels of other serum enzymes; I10 Essential (primary) hypertension; E78.5 Hyperlipidemia, unspecified; I48.91 Unspecified atrial fibrillation; Z11.52 Encounter for screening for COVID-19; Z85.038 Personal history of other malignant neoplasm of large intestine
CPT/HCPCS: 36415; 70496; 70498; 71045; 80053; 82550; 83690; 83880; 84484; 85025; 99284; J7050; Q9967; U0002; 93005